=== PATIENT | male | born 1975 | race Caucasian/White ===

== ENCOUNTER 2016-07-27 10:12 | Emergency (ER) | payer BC ==
--- NOTE | 2016-07-27 11:13 | RAD ---
INDICATION: Right shoulder dislocation COMPARISON: None TECHNIQUE: AP and Y views were obtained. FINDINGS: There is anterior shoulder dislocation. There is no definitive fracture. 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 IMPRESSION: ANTERIOR SHOULDER DISLOCATION. POSTREDUCTION IMAGES ARE PENDING
[2016-07-27] MEDS ORDERED: Ondansetron INJ* 2 MG/ML VIAL IV ONE (11:20)
[2016-07-27] MEDS ORDERED: Morphine INJ* 4 MG/ML 1 ML CARPUJECT IV ONE ×2 (11:20→11:54)
--- NOTE | 2016-07-27 11:29 | ED ---
Upper Extremity Pain - HPI Summary HPI Summary: Patient presents with right shoulder pain. He has a history of shoulder dislocations, with the last one being 9 years ago. Today he was putting he hair in his ponytail and he "felt it go out". He denies N/T in the upper extremity and can move his elbow, wrist and hand. - History of Current Complaint Hx Obtained From: Patient Mechanism Of Injury: Twisted - patient was putting his hair in his ponytail and felt it go out Onset/Duration: Started Hours Ago Timing: Constant Severity Initially: Severe Severity Currently: Severe Pain Location: Shoulder Character: Sharp, Aching Aggravating Factor(s): Movement Alleviating Factor(s): Nothing Associated Signs & Symptoms: Positive: Negative Related History: Similar Episode/Dx As - pervious dislocations, Dominant Hand Right <Ever Lees - Last Filed: 07/28/16 09:07> <Trudi Simons - Last Filed: 07/28/16 21:55> - History of Current Complaint Chief Complaint: EDExtremityUpper Stated Complaint: POSS RT SHOULDER DISLOCATION Time Seen by Provider: 07/27/16 10:27 - Allergies/Home Medications Allergies/Adverse Reactions: Allergies Allergy/AdvReac Type Severity Reaction Status Date / Time No Known Allergies Allergy Verified 02/14/14 18:22 PMH/Surg Hx/FS Hx/Imm Hx Musculoskeletal History: Reports: Other Musculoskeletal History - right shoulder dislocations Psychiatric History: Reports: Hx Bipolar Disorder Infectious Disease History: No Infectious Disease History: Reports: History Other Infectious Disease - ENCEPHALITIS Denies: Traveled Outside the [place] in Last 30 Days - Family History Known Family History: Positive: None - Social History Occupation: Employed Full-time Lives: With Family Alcohol Use: Occasionally Substance Use Type: Reports: None Smoking Status (MU): Current Every Day Smoker Type: Cigarettes Amount Used/How Often: 1 PPD Cessation Counseling: Patient Advised to Stop <Ever Lees - Last Filed: 07/28/16 09:07> Review of Systems Positive: Myalgia, Decreased ROM - right shower Negative: Weakness, Paresthesia, Numbness All Other Systems Reviewed And Are Negative: Yes <Ever Lees - Last Filed: 07/28/16 09:07> Physical Exam Triage Information Reviewed: Yes Vital Signs On Initial Exam: Initial Vitals Temp Pulse Resp BP Pulse Ox 98.8 F 57 18 128/88 97 07/27/16 10:21 07/27/16 10:21 07/27/16 10:21 07/27/16 10:21 07/27/16 10:21 Vital Signs Reviewed: Yes Appearance: Positive: Well-Appearing, Well-Nourished, Pain Distress Skin: Positive: Warm, Skin Color Reflects Adequate Perfusion, Dry, Soft Head/Face: Positive: Normal Head/Face Inspection Eyes: Positive: EOMI, BHAVANI, Conjunctiva Clear ENT: Positive: Hearing grossly normal Respiratory/Lung Sounds: Positive: Breath Sounds Present Cardiovascular: Positive: RRR Musculoskeletal: Positive: Limited @ - pain with all movement in right shoulder , Pain @ - TTP globally right proximal humerus Neurological: Positive: Sensory/Motor Intact, Alert, Oriented to Person Place, Time, NV Bundle Intact Distally - sensation intact throughout upper extremity Psychiatric: Positive: Affect/Mood Appropriate AVPU Assessment: Alert <Ever Lees - Last Filed: 07/28/16 09:07> Vital Signs On Initial Exam: Initial Vitals Temp Pulse Resp BP Pulse Ox 98.8 F 57 18 128/88 97 07/27/16 10:21 07/27/16 10:21 07/27/16 10:21 07/27/16 10:21 07/27/16 10:21 <Trudi Simosn - Last Filed: 07/28/16 21:55> Procedures - Joint Reduction Joint Reduction Site: shoulder (R) Conscious Sedation: No Reduction Attempts: 1 Pre-Procedure NV Exam: Yes Post Joint Reduction Film: joint reduced <Ever Lees - Last Filed: 07/28/16 09:07> Diagnostics - Vital Signs Vital Signs Temp Pulse Resp BP Pulse Ox 07/27/16 10:21 98.8 F 57 18 128/88 97 - Radiology No standard instances Xray Interpretation: Positive (See Comments) Radiology Interpretation Completed By: Radiologist - right anterior shoulder dislocation <Ever Lees - Last Filed: 07/28/16 09:07> - Vital Signs Vital Signs Temp Pulse Resp BP Pulse Ox 07/27/16 12:55 57 15 126/69 07/27/16 12:09 54 18 111/60 95 07/27/16 12:02 18 03/15/17 11:30 18 07/27/16 10:21 98.8 F 57 18 128/88 97 <Trudi Simons - Last Filed: 07/28/16 21:55> Course/Dx - Course Course Of Treatment: Patient's shoulder was relocated and he was placed in an immobilizer. He declined post-reduction films. He was given instructions regarding care and follow-up with orthopedics. - Diagnoses Differential Diagnosis/HQI/PQRI: Positive: Arthritis, Bursitis, Contusion, Fracture (Closed), Laceration, Strain, Sprain <Ever Lees - Last Filed: 07/28/16 09:07> <Trudi Simons - Last Filed: 07/28/16 21:55> - Diagnoses Provider Diagnoses: Dislocation of right shoulder joint Discharge <Ever Lees - Last Filed: 07/28/16 09:07> <Trudi Simons - Last Filed: 07/28/16 21:55> - Discharge Plan Condition: Stable Disposition: HOME Patient Education Materials: Shoulder Dislocation (ED) Referrals: Panchito Saldana MD [Primary Care Provider] - Additional Instructions: Please keep your arm in the immobilizer until you are seen by orthopedics. You can remove to shower, but do not take your arm away from your body. Use ibuprofen 600mg three times daily with meals for the next 5-7 days and ice your shoulder to reduce swelling and pain. Call Dr. Perez's office today, with orthopedics, for a follow-up appointment. Return to the emergency department if symptoms worsen. Attestations User Type: Provider - I was available for consult. This patient was seen by the advanced practice provider. The patient was not seen by or examined by me. <Trudi Simons - Last Filed: 07/28/16 21:55>
[2016-07-27 12:56] VITALS: BP 126/69
== END 2016-07-27 12:55 | disposition home or self-care (01) ==
LOC: ED 10:12
DX: M25.511 Pain in right shoulder (principal); S43.004A Unspecified dislocation of right shoulder joint, initial encounter; X58.XXXA Exposure to other specified factors, initial encounter; Y93.9 Activity, unspecified; Y92.9 Unspecified place or not applicable
CPT/HCPCS: 96374; 96375; 99282; J2270; J2405

== ENCOUNTER 2018-10-03 11:11 | Emergency (ER) | payer SELFPAY | END 2018-10-03 11:38 | disposition left against medical advice (07) | LOC: UCEAST 11:11 | DX: R07.81 Pleurodynia (principal); Z53.21 Procedure and treatment not carried out due to patient leaving prior to being seen by health care provider ==